=== PATIENT | male | born 1960 | race Caucasian/White ===

== ENCOUNTER 2016-11-27 11:29 | Emergency (ER) | payer OTHER ==
[~2016-11-27] VITALS: Ht 180.3 cm; Wt 88.6 kg
--- NOTE | 2016-11-27 11:43 | ED.REPORT ---
HPI-Extremity Problem Upper Date of Service Nov 27, 2016 ED Provider: Luciana Nick MD 56 y/o male with no pertinent hx presents to the ED complaining of right index and middle finger injury 30 minutes before arriving to ED. Pt was nailing a habitat house when he accidentally put a nail through both his fingers. Pt complains of nausea and pain in both his fingers. He denies numbness or weakness in his right hand. He denies any other injuries or trauma. His tetanus is not up to date. Nursing Notes Stated Complaint: NAIL THROUGH INDEX AND MIDDLE FINGER Chief Complaint: Extremity Trauma Nursing Notes Reviewed: Yes Allergies: Coded Allergies: No Known Allergies (Unverified , 11/27/16) Scheduled Cephalexin (Keflex) 500 Mg Capsule 500 MG PO BID Scheduled PRN Hydrocodone-Acetaminophen 5-325 mg (Hydrocodone-Acetaminophen 5-325 mg) 1 Each Tablet 1 TABLET PO Q4H PRN PRN For Pain General Time Seen by MD: 11:38 Chief Complaint Finger injury right 2, Finger injury right 3 Hx Obtained From: Patient Arrived By: Walk-in Onset Occurred: Just prior to arrival Symptom Duration: Since onset Location: : Finger right 2: Finger right 3 Quality: Painful Severity: Current: Moderate Severity: Maximum: Moderate Recent Healthcare: No recent doctor visit Similar Sx Previous: No Past Medical History Past Medical History liver lesion Past Surgical History none reported Smoking History Unknown if Ever Smoker Social History Other Social History: Good social support Ambulatory Status Independent Review of Systems Musculoskeletal: Reports: Extremity pain (Right finger 2 and 3) Neurologic: Denies: Numbness, Weakness Complete sys rev & neg: except as marked. GI: Reports: Nausea Physical Exam Initial Vital Signs Vital Signs (First) Date Time Temp Pulse Resp B/P Pulse Ox O2 Delivery O2 Flow Rate FiO2 11/27/16 11:52 36.1 48 16 108/62 98 Room Air Initial VS: Reviewed, Vital signs abnormal Head / Eyes: Atraumatic, Normocephalic, PERRL ENT: Mucous membranes moist, Conjunctiva normal, No scleral icterus Neck: Supple, Non-tender, Full range of motion Respiratory: Breath sounds normal, Clear to auscultation, No respiratory distress Abdomen / GI: Soft, Non-tender, No guarding, No rebound, No distention Lower Extremities: Vascular intact, Neuro intact, No swelling, No tenderness Skin: Warm, Dry, No cyanosis Psychiatric: Mood/affect normal, Behavior normal, Normal thought content General/Constitutional: Awake, Alert, Well appearing, Cooperative Cardiovascular: Heart rate NL, Regular rhythm, Heart sounds NL, No gallop, No murmurs, No rubs, Cap refill not delayed Upper Extremity / MS: Neurologic intact, Vascular intact Wrist / Hand: Neurologic intact, Vascular intact There is a nail going through the distal portion of the patient's right index and middle finger. Sensation in both the right index and middle finger is intact. Neurologic: Oriented X3, Speech NL, No motor deficits, No sensory deficits Interpretation & Diagnostics Lab Results Interpretation Result Diagram: 11/27/16 1207 11/27/16 1207 Test 11/27/16 12:07 White Blood Count 3.3th/mm3 (3.8-10.1) Red Blood Count 5.22mil/mm3 (4.40-5.80) Hemoglobin 15.3g/dL (13.8-17.2) Hematocrit 43.7% (41.0-50.0) Mean Corpuscular Volume 83.7fL (81-100) Mean Corpuscular Hemoglobin 29.3pg (27.0-35.0) Mean Corpuscular Hemoglobin Concent 35.0% (32.0-37.0) Red Cell Distribution Width 12.2% (12.3-15.4) Platelet Count 177bil/L (150-400) Neutrophils (%) (Auto) 65.1% (40-74) Lymphocytes (%) (Auto) 24.1% (14-46) Monocytes (%) (Auto) 9.3% (4-12) Eosinophils (%) (Auto) 0.9% (0-5) Basophils (%) (Auto) 0.6% (0-3) Prothrombin Time 10.3sec (8.1-12.5) Prothromb Time International Ratio 0.96ratio Sodium Level 139mEq/L (134-144) Potassium Level 3.9mEq/L (3.5-5.2) Chloride Level 102mEq/L (97-108) Carbon Dioxide Level 23mmol/L (18-29) Blood Urea Nitrogen 17mg/dL (6-24) Creatinine 0.79mg/dL (0.76-1.27) Estimat Glomerular Filtration Rate 108mL/min (>59) Glucose Level 118mg/dL (60-99) Calcium Level 9.2mg/dL (8.5-10.1) Hold Chun Top Tube Received (Received) X-Ray Interpretation Xray Interpretation: IMPRESSION: 1. The nail traverses the 2nd and 3rd digits as described above. 2. Small displaced fracture fragment adjacent to the middle phalanx of the 2nd digit. Dictated by: Jay Khan M.D. on 11/27/2016 at 12:05 Approved by: Jay Khan M.D. on 11/27/2016 at 12:07 X-Ray Ordered: Hand right Interpretation / Wet Read by: Interpret - Radiologist Xray Interpretation: IMPRESSION: 1. 2nd digit fractures as described above. Dictated by: Jay Khan M.D. on 11/27/2016 at 12:55 Approved by: Jay Khan M.D. on 11/27/2016 at 12:58 X-Ray Ordered: Hand right Interpretation / Wet Read by: Interpret - Radiologist Procedures Digital Nerve Block Time: 11:50 Procedure Performed by: ED physician Indication: Foreign body removal Consent / Setup / Site Prep: Consent from patient, Time-out performed, Hand hygiene observed Skin Preparation Agent: Normal saline Digit Involved: Index finger right, Middle finger right Digital Block Procedure: Bupivacaine 0.5%, 5cc (5cc in each finger) Post-Procedure / Complications: Antibiotic oint applied, Dressing applied, No complications, Condition improved, Tolerated procedure well, Patient stable FB Removal - Tick / Stinger Removed a nail from the patient's right index and middle finger using a pliers and wire cutters. The patient tolerated the procedure well. Condition improved. Dressing applied. Time: 12:00 Procedure Performed by: ED physician Re-Eval/Medical Decision Med Decision/Clinical Course The patient presents after isolated hand injury. He is neurovascularly intact. He has a fracture, he was splinted, and I spoke with Dr. Gaviria Re-Evaluation/Progress : Time of Eval: 12:00 Re-Evaluation/Progress Note: Rechecked pt. Discussed imaging results and diagnosis. Informed the pt of the plan to discharge. Pt understands and agrees with plan. F/U instructions and RTER warning given. All questions addressed. Consultation : Referral / Consult Name: Calderon Gaviria DO Consulted With: Orthopedic Call Returned at: 13:09 Documentation Liaison: Will see patient, Agrees with eval, Agrees with plan Counseled Regarding: Diagnosis, Need for follow-up, When/why to return to ED Discharge & Departure Impression: Primary Impression: Finger fracture, left Encounter type: initial encounter Fracture type: closed Qualified Code: S62.609A - Fracture of unspecified phalanx of unspecified finger, initial encounter for closed fracture Additional Impression: Foreign body of finger of right hand Encounter type: initial encounter Qualified Code: S60.459A - Superficial foreign body of unspecified finger, initial encounter Disposition: Home Discharge Condition All VS Reviewed: Yes Condition: Stable Patient Instructions: Finger Fracture (ED) Additional Instructions: Your X-rays show you have a finger fracture. Take your antibiotics and pain medications as prescribed. Please complete the entire course of antibiotics. Follow up with your Primary Care Provider for further evaluation as needed. Return to the Emergency Department in case of severe swelling, redness or any new or concerning symptoms. Referrals: Shiraz Hernandez MD (PCP) Calderon Gaviria DO Scribe Attestation Portions of this note were transcribed by Pedro Rosenthal and Patricia Stephens. I, , personally performed the history, physical exam and medical decision-making;I reviewed and confirmed the accuracy of the information in the transcribed note. Signed by Pedro Rosenthal and Misael Lozano. 11/27/16 14:30. copies to: Calderon Gaviria DO; Shiraz Hernandez MD, Jena M MD Nov 27, 2016 11:43 Pedro Rosenthal Nov 27, 2016 13:14 Patricia Stephens Nov 27, 2016 14:23
[2016-11-27 11:52] VITALS: BP 108/62; PULSE 48; RESP 16; O2SAT 98
[2016-11-27] MEDS ORDERED: 0.9% Sodium Chloride 500 ML IV ONE (11:55)
[2016-11-27] MEDS ORDERED: HYDROmorphone 0.5 mg/0.5 mL iSecure Syringe IVPUSH PRN (11:55)
--- NOTE | 2016-11-27 12:09 | DRSVH ---
PROCEDURE: X-RAY FINGERS, TWO VIEWS INDICATIONS: NAIL THROUGH INDEX AND MIDDLE FINGER TECHNIQUE: AP hand, 2 views of the 2nd and 3rd finger(s) acquired. COMPARISON: None. FINDINGS: Bones: A nail traverses the 2nd and 3rd digits, involving the middle phalanx of the 2nd digit, and t he distal aspect of the proximal phalanx of the 3rd digit. There is a small bony fragment at the ulna r aspect of the midportion of the middle phalanx of the 2nd digit. No suspicious bony lesions. Soft tissues: No suspicious soft tissue calcifications. IMPRESSION: 1. The nail traverses the 2nd and 3rd digits as described above. 2. Small displaced fracture fragment adjacent to the middle phalanx of the 2nd digit. Dictated by: Jay Khan M.D. on 11/27/2016 at 12:05 Approved by: aJy Khan M.D. on 11/27/2016 at 12:07
[2016-11-27] MEDS ORDERED: CeFAZolin Inj 3 GM in IV Premix 1 EACH IV ONE (12:10)
[2016-11-27] MEDS ORDERED: TdaP Vaccine 0.5 mL Inj IM ONE (12:20)
[2016-11-27 12:30] LABS: BASOPHILS % (AUTO) 0.6 % (0-3); EOSINOPHILS % (AUTO) 0.9 % (0-5); MONOCYTES % (AUTO) 9.3 % (4-12); Mean Corpuscular Hemoglobin 29.3 pg (27.0-35.0); Mean Corpuscular Volume 83.7 fL (81-100); NEUTROPHILS % (AUTO) 65.1 % (40-74); Platelet Count 177 bil/L (150-400)
[2016-11-27 12:46] LABS: INR 0.96 ratio
--- NOTE | 2016-11-27 13:00 | DRSVH ---
PROCEDURE: X-RAY FINGERS, TWO VIEWS INDICATIONS: foreign body removal TECHNIQUE: AP hand, 2 views of the 2nd finger(s) acquired. COMPARISON: [facility], CR, XR FINGER(S) RT 2VW, 11/27/2016, 11:47. FINDINGS: Bones: The nail has been removed. As before, there is a small bony fragment at the ulnar aspect of th e middle phalanx of the 2nd digit. There is a minimally displaced fracture of the middle phalanx exte nding from the distal aspect the proximal aspect, involving the proximal interphalangeal joint. No eubanks spicious bony lesions. Soft tissues: No suspicious soft tissue calcifications. IMPRESSION: 1. 2nd digit fractures as described above. Dictated by: Jay Khan M.D. on 11/27/2016 at 12:55 Approved by: Jay Khan M.D. on 11/27/2016 at 12:58
[2016-11-27] MEDS ORDERED: CEPH-512 PO (13:19)
[2016-11-27] MEDS ORDERED: HYDR-4003 PO (13:19)
== END 2016-11-27 13:54 | disposition home or self-care (01) ==
LOC: SED 11:29
DX: S62.620A Displaced fracture of middle phalanx of right index finger, initial encounter for closed fracture (principal); S60.450A Superficial foreign body of right index finger, initial encounter; S60.452A Superficial foreign body of right middle finger, initial encounter; W45.0XXA Nail entering through skin, initial encounter; Y93.E9 Activity, other interior property and clothing maintenance; Y92.009 Unspecified place in unspecified non-institutional (private) residence as the place of occurrence of the external cause; Y99.8 Other external cause status; R11.0 Nausea; Z23 Encounter for immunization
CPT/HCPCS: 10120; 36415; 73140; 80048; 85025; 85610; 90471; 90715; 96361; 96365; 96375; 99285; J0690; J1170; J7040